=== PATIENT | male | born 1995 ===

== ENCOUNTER 2017-06-29 11:03 | Emergency (ER) | payer BC ==
[2017-06-29 11:57] VITALS: BP 126/82
--- NOTE | 2017-06-29 12:10 | UC ---
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 Feels dry, but not itchy. " Sx started in left eye 3 days ago and then moved to rt eye yesterday. eyes crusted shut this AM. not painful. no FB. no trauma. wears contacts but denies overuse or leaving in for prolonged period of time. no fever/chills + URI sx this week with stuffy nose and mild cough. no wheezing. no fevers. - History of Current Complaint Chief Complaint: UCEye Stated Complaint: BILATERAL EYE Time Seen by Provider: 06/29/17 12:04 - Allergies/Home Medications Allergies/Adverse Reactions: Allergies Allergy/AdvReac Type Severity Reaction Status Date / Time No Known Allergies Allergy Verified 06/29/17 11:51 Home Medications: Home Medications Amphetamine-Dextroamphetamine [Adderall Xr 30 mg] 1 cap PO DAILY 06/29/17 [ History Confirmed 06/29/17] PMH/Surg Hx/FS Hx/Imm Hx Previously Healthy: Yes Psychological History: Other - ADD Other Psychological History: ADD - Surgical History Surgical History: None - Family History Known Family History: Positive: Hypertension - Social History Alcohol Use: Occasionally Substance Use Type: Marijuana Substance Use Comment - Amount & Last Used: occasional use- last used 2 days ago Smoking Status (MU): Never Smoked Tobacco Review of Systems Constitutional: Negative Skin: Negative Eyes: Drainage, Eye Redness, Photophobia ENT: Sinus Congestion Respiratory: Cough - mild Cardiovascular: Negative Gastrointestinal: Negative Genitourinary: Negative Motor: Negative Neurovascular: Negative Musculoskeletal: Negative Neurological: Negative Psychological: Negative Is Patient Immunocompromised?: No All Other Systems Reviewed And Are Negative: Yes Physical Exam Triage Information Reviewed: Yes Appearance: Well-Appearing, No Pain Distress, Well-Nourished - no coughing. Vital Signs: Initial Vital Signs Temp 98.8 F 06/29/17 11:53 Pulse 80 06/29/17 11:53 Resp 16 06/29/17 11:53 BP 126/82 06/29/17 11:53 Vital Signs Reviewed: Yes Eyes: Positive: Conjunctiva Inflamed, Discharge, Other: - no eyelid swelling. + crusted d/c on b/y eyelashes. ENT: Positive: Pharyngeal erythema - mild w/ + PND., TMs normal. Negative: Tonsillar swelling, Tonsillar exudate, Hoarse voice, Sinus tenderness Dental Exam: Normal Neck exam: Normal Neck: Positive: Supple, Nontender, No Lymphadenopathy Respiratory Exam: Normal Respiratory: Positive: Lungs clear, Normal breath sounds, No respiratory distress, No accessory muscle use. Negative: Crackles, Rhonchi, Stridor, Wheezing Cardiovascular Exam: Normal Cardiovascular: Positive: RRR, No Murmur, Pulses Normal Abdomen Description: Positive: Nontender, Soft Musculoskeletal Exam: Normal Neurological Exam: Normal Psychological Exam: Normal Skin Exam: Normal Eye Complaint Course/Dx - Differential Dx/Diagnosis Differential Diagnosis/HQI/PQRI: Conjunctivitis, Other - URI Provider Diagnoses: B/L conjunctivitis, viral URI Discharge - Discharge Plan Condition: Stable Disposition: HOME Prescriptions: Gentamicin 0.3% OPHTH.SOLN* 1 drop BOTH EYES Q4H #1 btl Patient Education Materials: Conjunctivitis (ED) Forms: *Work Release Referrals: Luna [facility],Nilay Blair [Physician [place] Department Worker] - 3 Days Additional Instructions: You should see your technology recruiter in the next couple of days if there is no improvement or symptoms worsen in your eyes. We discussed possibilities of injury to your cornea potentially from contact use as well that could cause persisting symptoms.
== END 2017-06-29 12:25 | disposition home or self-care (01) ==
LOC: UCCORT 11:03
DX: H10.33 Unspecified acute conjunctivitis, bilateral (principal); J06.9 Acute upper respiratory infection, unspecified; F98.8 Other specified behavioral and emotional disorders with onset usually occurring in childhood and adolescence; F12.90 Cannabis use, unspecified, uncomplicated
CPT/HCPCS: 99202; G0463

== ENCOUNTER 2018-01-07 07:59 | Emergency (ER) | payer BC ==
[2018-01-07 08:19] VITALS: BP 122/72
--- NOTE | 2018-01-07 08:38 | UC ---
Lower Extremity/Ankle HPI - HPI Summary HPI Summary: right lateral ankle and foot pain after playing basket ball last night. he was able to finish the game and walk home. pain is worse today. Icing did not help. - History of Current Complaint Chief Complaint: UCTrauma Stated Complaint: RIGHT FOOT INJURY Time Seen by Provider: 01/07/18 08:29 Hx Obtained From: Patient, Family/Foot Specialist Onset/Duration: Gradual Onset Severity Initially: Mild Severity Currently: Severe Pain Intensity: 4 Aggravating Factor(s): Standing, Ambulation Alleviating Factor(s): Rest, Elevation Able to Bear Weight: No - Allergies/Home Medications Allergies/Adverse Reactions: Allergies Allergy/AdvReac Type Severity Reaction Status Date / Time No Known Allergies Allergy Verified 01/07/18 08:19 PMH/Surg Hx/FS Hx/Imm Hx Previously Healthy: Yes - Surgical History Surgical History: None - Family History Known Family History: Positive: Hypertension - Social History Lives: With Family Alcohol Use: Occasionally Substance Use Type: Marijuana Substance Use Comment - Amount & Last Used: occasional use- last used 2 days ago Smoking Status (MU): Never Smoked Tobacco Review of Systems Musculoskeletal: Arthralgia All Other Systems Reviewed And Are Negative: Yes Physical Exam Triage Information Reviewed: Yes Appearance: Pain Distress - obvious pain with ambulation in to the room. Vital Signs: Initial Vital Signs Temp 99.0 F 01/07/18 08:06 Pulse 67 01/07/18 08:06 Resp 18 01/07/18 08:06 BP 122/72 01/07/18 08:06 Pulse Ox 99 01/07/18 08:06 Eye Exam: Normal ENT: Positive: Normal ENT inspection Neck: Positive: Supple, Nontender, No Lymphadenopathy Respiratory: Negative: Respiratory distress, Accessory muscle use Cardiovascular: Positive: Brisk Capillary Refill Abdomen Description: Negative: Distended Musculoskeletal Exam: Other - No [place] tenderness of the ankle. There is lateral foot tenderness. no swelling or bruising. No proximal fibula tenderness. Neurological: Positive: Alert, Muscle Tone Normal. Negative: Fatigued Psychological: Positive: Normal Response To Family. Negative: Age Appropriate Behavior Skin: Negative: rashes Procedures - Splinting Right Lower Extremity Pre-Made Type: sharon wrap Pre-Proc Neuro Vasc Exam: normal Post-Proc Neuro Vasc Exam: normal, unchanged from pre-exam Lower Extremity Course/Dx - Differential Dx/Diagnosis Provider Diagnoses: right traumatic foot sprain. Discharge - Sign-Out/Discharge Documenting (check all that apply): Discharge/Admit/Transfer - Discharge Plan Condition: Good Disposition: HOME Patient Education Materials: Sprain (ED), Foot Sprain (ED) Forms: *Work Release Referrals: NIXON Foster [Primary Care Provider] - - Billing Disposition and Condition Condition: GOOD Disposition: Home
--- NOTE | 2018-01-07 08:58 | RAD ---
Indication: Lateral and dorsal RIGHT foot pain following injury last night. Comparison: No relevant prior exams available on the [facility] [place]. Technique: AP, lateral, and oblique views RIGHT foot. REPORT AND IMPRESSION: Negative for fracture or malalignment. Small os peroneum accessory ossicle noted. Mild lateral soft tissue swelling.
== END 2018-01-07 09:03 | disposition home or self-care (01) ==
LOC: UCCORT 07:59
DX: S93.601A Unspecified sprain of right foot, initial encounter (principal); X50.0XXA Overexertion from strenuous movement or load, initial encounter; Y93.67 Activity, basketball; Y92.9 Unspecified place or not applicable
CPT/HCPCS: 99211; G0463